=== PATIENT | female | born 1960 | race Caucasian/White ===

== ENCOUNTER → 2018-02-09 | Day surgery (SDC) | payer BC ==
[~2018-02-09] MED LIST: Lactated Ringers 1,000 ML IV SCH; Propofol 200 MG/20 ML SDV IV ONE
[2018-02-09] MEDS: Lactated Ringers 1,000 ML IV SCH (09:10)
--- NOTE | 2018-02-09 17:02 | OR ---
DATE OF OPERATION: 02/09/2018 PREOPERATIVE DIAGNOSIS: ALTERED BOWEL HABITS. POSTOPERATIVE DIAGNOSIS: ALTERED BOWEL HABITS. SURGEON: Suraj Dial MD PROCEDURE PERFORMED: Full-length colonoscopy. ANESTHESIA: [employer] S[employer]ER due to depression and anxiety. COMPLICATIONS: None. SPECIMEN: None. FINDINGS: 1. Normal full length colonoscopy. 2. Minimal sigmoid diverticulosis. RECOMMENDATIONS: Followup colonoscopy routine in 10 years. INDICATIONS: The patient has apparently been having some altered bowel habits and abdominal pain. Brittany has sent her for colonoscopy. DESCRIPTION OF PROCEDURE: The patient was prepped and draped, placed in the left lateral decubitus position. A lubricated Olympus colonoscope was inserted and easily advanced to the cecum. Direct visualization of the ileocecal valve and appendiceal orifice was accomplished. The bowel prep was fine. Upon withdrawal, throughout the entire length of the colon, I could find no signs of any polyps, mass, ulceration, bleeding sites, no vascular abnormalities or signs of colitis. There may have been a few diverticula in the sigmoid area, but very minimal. No signs of any other abnormalities. The rectal vault was benign. Retroflexion of scope in the rectum showed no perianal lesions other than some skin tags. Air was suctioned. Scope was removed without complication. OJHN/JESSA /[id number]
== END ==
LOC: CC.SDS 08:48
PROVIDERS: ATTEND Family Medicine
DX: R19.4 Change in bowel habit (principal); K57.30 Diverticulosis of large intestine without perforation or abscess without bleeding; K64.4 Residual hemorrhoidal skin tags; K21.9 Gastro-esophageal reflux disease without esophagitis; F41.9 Anxiety disorder, unspecified; F32.9 Major depressive disorder, single episode, unspecified; Z79.899 Other long term (current) drug therapy
CPT/HCPCS: J2704; J7120